=== PATIENT | male | born 1955 | race Caucasian/White ===

== ENCOUNTER 2017-09-18 12:47 | Emergency (ER) | payer BC ==
[2017-09-18] MEDS: SOD CHLORIDE 0.9% 1,000 ML IV (13:32)
[2017-09-18 14:38] LABS: ADD MAN DIFF? NO
[2017-09-18 14:41] LABS: BASOPHILS % 0.5 % (0.0-2.0); EOSINOPHILS # 0.1 10^3/ul (0.0-0.5); EOSINOPHILS % 0.6 % (0.0-7.0); HEMATOCRIT 39.4 % (42.0-52.0); HEMOGLOBIN 13.6 g/dl (14.0-18.0); LYMPHOCYTES # 1.1 10^3/ul (0.8-2.9); LYMPHOCYTES % 13.1 % (15.0-51.0); MEAN CORPUSCULAR HEMOGLOBIN 30.5 pg (29.0-33.0); MEAN CORPUSCULAR HGB CONC 34.5 g/dl (32.0-37.0); MEAN CORPUSCULAR VOLUME 88.3 fl (82.0-101.0); MEAN PLATELET VOLUME 8.8 fl (7.4-10.4); MONOCYTE # 0.6 10^3/ul (0.3-0.9); MONOCYTES % 6.6 % (0.0-11.0); NEUTROPHIL # 6.9 10^3/ul (1.6-7.5); PLATELET COUNT 185 10^3/UL (140-415); RED BLOOD COUNT 4.46 10^6/ul (4.70-6.10); RED CELL DISTRIBUTION WIDTH 14.9 % (11.5-14.5)
[2017-09-18 14:41] LABS: WHITE BLOOD COUNT 8.7 10^3/ul (4.8-10.8)
[2017-09-18 15:05] LABS: ANION GAP 24 (8-16); BLOOD UREA NITROGEN 7 mg/dl (7-20); CALCIUM 9.2 mg/dl (8.4-10.2); CARBON DIOXIDE 26 mmol/L (21-31); CHLORIDE 95 mmol/L (97-110); CREATININE 0.74 mg/dl (0.61-1.24); GLUCOSE 134 mg/dl (70-220); POTASSIUM 3.7 mmol/L (3.5-5.1); SODIUM 141 mmol/L (135-144)
[2017-09-18 15:21] LABS: TROPONIN-I < 0.012 ng/ml (0.00-0.12)
== END 2017-09-18 16:16 | disposition home or self-care (01) ==
LOC: E/R 12:47
DX: S06.0X0A Concussion without loss of consciousness, initial encounter (principal); D64.9 Anemia, unspecified; I10 Essential (primary) hypertension; E11.9 Type 2 diabetes mellitus without complications; W18.39XA Other fall on same level, initial encounter; Y92.9 Unspecified place or not applicable; Z79.84 Long term (current) use of oral hypoglycemic drugs
CPT/HCPCS: 70450; 70480; 80048; 82962; 84484; 85025; 93005; 99285-25

== ENCOUNTER 2017-10-17 22:16 | Inpatient (IN) | payer BC ==
[2017-10-18 00:02] LABS: ADD MAN DIFF? NO
[2017-10-18 00:06] LABS: WHITE BLOOD COUNT 5.6 10^3/ul (4.8-10.8)
[2017-10-18 00:06] LABS: ABNORMAL IP MESSAGE 1; BASOPHILS % 0.4 % (0.0-2.0); EOSINOPHILS % 0.4 % (0.0-7.0); HEMATOCRIT 37.4 % (42.0-52.0); HEMOGLOBIN 13.4 g/dl (14.0-18.0); LYMPHOCYTES # 0.8 10^3/ul (0.8-2.9); LYMPHOCYTES % 13.6 % (15.0-51.0); MEAN CORPUSCULAR HEMOGLOBIN 30.5 pg (29.0-33.0); MEAN CORPUSCULAR HGB CONC 35.8 g/dl (32.0-37.0); MEAN PLATELET VOLUME 9.3 fl (7.4-10.4); MONOCYTE # 0.5 10^3/ul (0.3-0.9); MONOCYTES % 8.9 % (0.0-11.0); NEUTROPHIL # 4.3 10^3/ul (1.6-7.5); NEUTROPHILS % 76.3 % (39.0-77.0); PLATELET COUNT 97 10^3/UL (140-415); POSITIVE DIFF @See below; RED CELL DISTRIBUTION WIDTH 15.3 % (11.5-14.5)
[2017-10-18] MEDS: LEVETIRACETAM 500 MG (PMX) 100 ML IVPB ×3 (00:12→22:22)
[2017-10-18 00:21] LABS: ANION GAP 13 (8-16); BLOOD UREA NITROGEN 9 mg/dl (7-20); CALCIUM 9.2 mg/dl (8.4-10.2); CARBON DIOXIDE 31 mmol/L (21-31); CHLORIDE 94 mmol/L (97-110); CREATININE 0.68 mg/dl (0.61-1.24); GLUCOSE 170 mg/dl (70-220); SODIUM 135 mmol/L (135-144)
[2017-10-18] MEDS ORDERED: POTASSIUM CHLORIDE (SR) 20 MEQ TAB PO ×2 (01:10)
[2017-10-18] MEDS ORDERED: ONDANSETRON 4 MG TAB PO (02:00)
[2017-10-18] MEDS ORDERED: NACL 0.9% 3 ML SYG IV (02:00)
[2017-10-18] MEDS ORDERED: ACETAMINOPHEN 325 MG TAB PO (02:00)
[2017-10-18] MEDS ORDERED: LORAZEPAM 2 MG INJ IV (02:00)
[2017-10-18] MEDS: POTASSIUM CHLORIDE 50 ML IVPB ×4 (02:17→10:21)
[2017-10-18] MEDS: SOD CHLORIDE 0.9% 500 ML IV (02:30)
[2017-10-18 02:37] LABS: URINE BLOOD (Dip) POC Trace-lysed (NEGATIVE); URINE GLUCOSE (Dip) POC Negative (NEGATIVE); URINE KETONES (Dip) POC 2+ (NEGATIVE); URINE LEUKOCYTE EST (Dip) POC Negative (NEGATIVE); URINE NITRITE (Dip) POC Negative (NEGATIVE); URINE TOTAL PROTEIN POC 1+ (NEGATIVE)
[2017-10-18 03:22] LABS: AMPHETAMINE/METHAMPHETAMINE Negative (NEGATIVE)
[2017-10-18 03:23] LABS: ETHANOL < 10.0 mg/dl
[2017-10-18 03:23] LABS: BARBITURATES Negative (NEGATIVE); BENZODIAZEPINES Negative (NEGATIVE); CANNABINOIDS Negative (NEGATIVE); COCAINE Negative (NEGATIVE); OPIATES Negative (NEGATIVE)
[2017-10-18] MEDS: LORAZEPAM 2 MG INJ IV (04:25)
[2017-10-18 06:13] LABS: ADD MAN DIFF? NO
[2017-10-18 06:21] LABS: ABNORMAL IP MESSAGE 1; BASOPHILS % 0.2 % (0.0-2.0); EOSINOPHILS # 0.1 10^3/ul (0.0-0.5); EOSINOPHILS % 0.8 % (0.0-7.0); HEMATOCRIT 34.7 % (42.0-52.0); HEMOGLOBIN 12.2 g/dl (14.0-18.0); LYMPHOCYTES # 1.3 10^3/ul (0.8-2.9); LYMPHOCYTES % 20.2 % (15.0-51.0); MEAN CORPUSCULAR HEMOGLOBIN 30.6 pg (29.0-33.0); MEAN CORPUSCULAR HGB CONC 35.2 g/dl (32.0-37.0); MEAN PLATELET VOLUME 9.4 fl (7.4-10.4); MONOCYTE # 0.6 10^3/ul (0.3-0.9); NEUTROPHIL # 4.2 10^3/ul (1.6-7.5); NEUTROPHILS % 68.5 % (39.0-77.0); PLATELET COUNT 82 10^3/UL (140-415); POSITIVE DIFF @See below; RED BLOOD COUNT 3.99 10^6/ul (4.70-6.10); RED CELL DISTRIBUTION WIDTH 15.3 % (11.5-14.5)
[2017-10-18 06:21] LABS: WHITE BLOOD COUNT 6.2 10^3/ul (4.8-10.8)
[2017-10-18 06:43] LABS: ALANINE AMINOTRANSFERASE 34 IU/L (13-69); ALBUMIN 3.8 g/dl (3.3-4.9); ALBUMIN/GLOBULIN RATIO 1.35; ALKALINE PHOSPHATASE 39 IU/L (42-121); ANION GAP 12 (8-16); ASPARTATE AMINO TRANSFERASE 30 IU/L (15-46); BILIRUBIN,INDIRECT 0.8 mg/dl (0-1.1); BILIRUBIN,TOTAL 0.8 mg/dl (0.2-1.3); BLOOD UREA NITROGEN 7 mg/dl (7-20); CALCIUM 8.6 mg/dl (8.4-10.2); CARBON DIOXIDE 29 mmol/L (21-31); CHLORIDE 100 mmol/L (97-110); CHOL/HDL RATIO 2.1 RATIO; CHOLESTEROL 141 mg/dl (100-200); GLUCOSE 112 mg/dl (70-220); HDL CHOLESTEROL 65 mg/dl (30-78); LDL CHOLESTEROL,CALCULATED 51 mg/dl; MAGNESIUM 1.3 mg/dl (1.7-2.5); SODIUM 138 mmol/L (135-144); TOTAL PROTEIN 6.6 g/dl (6.1-8.1); TRIGLYCERIDES 126 mg/dl (0-149)
[2017-10-18 06:52] LABS: POTASSIUM 2.8 mmol/L (3.5-5.1)
[2017-10-18] MEDS: LISINOPRIL 20 MG TAB PO (09:35)
[2017-10-18] MEDS: MULTIVITAMINS 10 ML, THIAMINE 100 MG, FOLIC ACID 1 MG in SOD CHLORIDE 0.9% 1,000 ML IVPB (10:18)
[2017-10-18] MEDS ORDERED: GLUCAGON 1 MG INJ IM (10:30)
[2017-10-18] MEDS ORDERED: GLUCOSE GEL 15 GRAM TUBE BUCCAL (10:30)
[2017-10-18] MEDS ORDERED: DEXTROSE 50% 50 ML SYRINGE IV ×2 (10:30)
[2017-10-18] MEDS ORDERED: GLUCOSE GEL 15 GRAM TUBE PO ×2 (10:30)
[2017-10-18] MEDS ORDERED: FOLIC ACID 1 MG TAB PO (10:30)
[2017-10-18] MEDS: INSULIN ASPART [NOVOLOG] 3 ML PEN SC ×3 (11:45→21:00)
[2017-10-18] MEDS: POTASSIUM CHLORIDE (SR) 20 MEQ TAB PO (16:07)
[2017-10-18] MEDS: MAGNESIUM OXIDE 400 MG TAB PO (16:08)
[2017-10-18] MEDS: ATORVASTATIN 10 MG TAB PO (22:22)
[2017-10-18] MEDS: ZOLPIDEM 5 MG TAB PO (23:07)
[2017-10-19] MEDS: hydrALAzine 20 MG INJ IV ×2 (04:51→16:59)
[2017-10-19] MEDS: INSULIN ASPART [NOVOLOG] 3 ML PEN SC ×4 (07:35→21:00)
[2017-10-19] MEDS: LISINOPRIL 20 MG TAB PO (08:05)
[2017-10-19] MEDS: MULTIVITAMINS 10 ML, THIAMINE 100 MG, FOLIC ACID 1 MG in SOD CHLORIDE 0.9% 1,000 ML IVPB (08:05)
[2017-10-19] MEDS ORDERED: THIAMINE 100 MG TAB PO (09:00)
[2017-10-19] MEDS: LEVETIRACETAM 500 MG (PMX) 100 ML IVPB ×2 (09:08→21:24)
[2017-10-19] MEDS: ATORVASTATIN 10 MG TAB PO (21:23)
[2017-10-19] MEDS: ZOLPIDEM 5 MG TAB PO (22:50)
[2017-10-20] MEDS: hydrALAzine 20 MG INJ IV ×2 (02:18→05:09)
[2017-10-20] MEDS ORDERED: hydrALAzine 20 MG INJ IV (05:00)
[2017-10-20 06:38] LABS: ALBUMIN 4.2 g/dl (3.3-4.9); ANION GAP 16 (8-16); BLOOD UREA NITROGEN 9 mg/dl (7-20); CALCIUM 9.3 mg/dl (8.4-10.2); CARBON DIOXIDE 26 mmol/L (21-31); CHLORIDE 99 mmol/L (97-110); CREATININE 0.63 mg/dl (0.61-1.24); GLUCOSE 124 mg/dl (70-220); MAGNESIUM 1.2 mg/dl (1.7-2.5); PHOSPHORUS 4.5 mg/dl (2.5-4.9); SODIUM 138 mmol/L (135-144)
[2017-10-20 06:52] LABS: POTASSIUM 2.7 mmol/L (3.5-5.1)
[2017-10-20] MEDS ORDERED: POTASSIUM CHLORIDE (SR) 20 MEQ TAB PO (06:55)
[2017-10-20] MEDS: INSULIN ASPART [NOVOLOG] 3 ML PEN SC ×4 (07:32→21:00)
[2017-10-20] MEDS: POTASSIUM CHLORIDE (SR) 20 MEQ TAB PO ×2 (07:48→09:30)
[2017-10-20] MEDS: MULTIVITAMINS 10 ML, THIAMINE 100 MG, FOLIC ACID 1 MG in SOD CHLORIDE 0.9% 1,000 ML IVPB (08:15)
[2017-10-20] MEDS: LEVETIRACETAM 500 MG (PMX) 100 ML IVPB (08:19)
[2017-10-20] MEDS: LISINOPRIL 20 MG TAB PO (08:19)
[2017-10-20] MEDS: INFLUENZA VIRUS VACCINE 0.5 ML (DISPENSING) IM* (08:25)
[2017-10-20] MEDS: MAGNESIUM SULFATE 3 GM in DEXTROSE 5% 100 ML IVPB (08:45)
[2017-10-20 12:54] LABS: ANION GAP 15 (8-16)
[2017-10-20 13:05] LABS: BLOOD UREA NITROGEN 8 mg/dl (7-20); CALCIUM 10.2 mg/dl (8.4-10.2); CARBON DIOXIDE 28 mmol/L (21-31); CHLORIDE 99 mmol/L (97-110); CREATININE 0.58 mg/dl (0.61-1.24); GLUCOSE 144 mg/dl (70-220); POTASSIUM 3.8 mmol/L (3.5-5.1); SODIUM 138 mmol/L (135-144)
[2017-10-20] MEDS: LORAZEPAM 2 MG INJ IV (15:31)
[2017-10-20] MEDS: ZOLPIDEM 5 MG TAB PO (21:12)
[2017-10-20] MEDS: ATORVASTATIN 10 MG TAB PO (21:12)
[2017-10-20] MEDS: LEVETIRACETAM 500 MG TAB PO (21:12)
[2017-10-21 05:39] LABS: ALBUMIN 4.2 g/dl (3.3-4.9); ANION GAP 16 (8-16); BLOOD UREA NITROGEN 11 mg/dl (7-20); CALCIUM 9.3 mg/dl (8.4-10.2); CARBON DIOXIDE 25 mmol/L (21-31); CHLORIDE 100 mmol/L (97-110); CREATININE 0.64 mg/dl (0.61-1.24); GLUCOSE 146 mg/dl (70-220); MAGNESIUM 1.5 mg/dl (1.7-2.5); PHOSPHORUS 4.1 mg/dl (2.5-4.9); POTASSIUM 3.2 mmol/L (3.5-5.1); SODIUM 138 mmol/L (135-144)
[2017-10-21] MEDS: INSULIN ASPART [NOVOLOG] 3 ML PEN SC ×2 (07:35→15:42)
[2017-10-21] MEDS: LISINOPRIL 20 MG TAB PO (09:14)
[2017-10-21] MEDS: LEVETIRACETAM 500 MG TAB PO (09:14)
[2017-10-21] MEDS: MULTIVITAMINS THERAPEUTIC TAB PO (09:14)
[2017-10-21] MEDS ORDERED: POTASSIUM CHLORIDE 20 MEQ POWDER FOR ORAL SOLN PO (14:00)
[2017-10-21] MEDS: POTASSIUM CHLORIDE (SR) 20 MEQ TAB PO (15:23)
[2017-10-21] MEDS: MAGNESIUM SULFATE 2 GM/50 ML 50 ML IVPB (15:28)
== END 2017-10-21 17:40 | disposition home or self-care (01) | DRG 101 ==
LOC: MS3 10-18 01:57 → E/R 22:16
PROC: 4A00X4Z Measurement of Central Nervous Electrical Activity, External Approach (ICD-10-PCS; principal; 2017-10-18)
DX: R56.9 Unspecified convulsions (principal); I10 Essential (primary) hypertension; E11.9 Type 2 diabetes mellitus without complications; F32.9 Major depressive disorder, single episode, unspecified; E78.5 Hyperlipidemia, unspecified; E87.6 Hypokalemia; F41.9 Anxiety disorder, unspecified; F10.10 Alcohol abuse, uncomplicated; Z79.84 Long term (current) use of oral hypoglycemic drugs
CPT/HCPCS: 36415; 70450; 70553; 71045; 80048; 80053; 80061; 80069; 80306; 80307; 81003; 82962; 83036; 83735; 84443; 85025; 90686; 93005; 93880; 95819; 96374; 96375; 99285-25